=== PATIENT | female | born 1990 | race Caucasian/White ===

== ENCOUNTER → 2024-11-23 16:58 | Outpatient (REF) | payer OTHER, SELFPAY | LOC: RAD 16:58 | PROVIDERS: ATTENDING PHYSICIAN Urology; FAMILY PHYSICIAN Family Medicine | DX: R10.9 Unspecified abdominal pain (principal); R10.11 Right upper quadrant pain; N20.0 Calculus of kidney | CPT/HCPCS: 74178; Q9967 ==

== ENCOUNTER 2025-05-07 06:33 | Day surgery (SDC) | payer OTHER, SELFPAY ==
[2025-05-07] VITALS (7 sets, daily range): BP systolic 99–120; BP diastolic 62–84; BMI 19.0
[2025-05-07] MEDS: NORMOSOL-R/PLASMALYTE-A 1000 IV (08:15)
[2025-05-07] MEDS: TYLENOL 650 MG PO (11:06)
== END 2025-05-07 11:40 | disposition home or self-care (01) ==
LOC: SDS 06:33
PROVIDERS: ATTENDING PHYSICIAN Urology
DX: N20.0 Calculus of kidney (principal); N30.10 Interstitial cystitis (chronic) without hematuria
CPT/HCPCS: 52352; 74018; 76000; 82365